=== PATIENT | female | born 1950 | race African-American/Black ===

== ENCOUNTER → 2023-09-05 | Outpatient (CLI) | payer MEDICARE | END | disposition home or self-care (01) | LOC: RAD 09:18 | PROVIDERS: ATTEND Internal Medicine Critical Care Medicine | DX: M17.0 Bilateral primary osteoarthritis of knee (principal); M25.461 Effusion, right knee; M25.462 Effusion, left knee; M25.762 Osteophyte, left knee; M25.761 Osteophyte, right knee | CPT/HCPCS: 73560 ==

== ENCOUNTER → 2023-12-26 | Outpatient (CLI) | payer MEDICARE | END | disposition home or self-care (01) | LOC: RAD 08:26 | PROVIDERS: ATTEND Internal Medicine Critical Care Medicine | DX: N60.02 Solitary cyst of left breast (principal) | CPT/HCPCS: 77062; 77065; G0279 ==

== ENCOUNTER → 2024-08-04 | Outpatient (CLI) | payer MEDICARE | END | disposition home or self-care (01) | LOC: US 08:16 | PROVIDERS: ATTEND Internal Medicine Critical Care Medicine | DX: C34.90 Malignant neoplasm of unspecified part of unspecified bronchus or lung (principal); N60.02 Solitary cyst of left breast; N60.01 Solitary cyst of right breast; N63.20 Unspecified lump in the left breast, unspecified quadrant; R92.323 Mammographic fibroglandular density, bilateral breasts | CPT/HCPCS: 71046; 76642; 77062; 77066; G0279 ==

== ENCOUNTER → 2025-02-04 | Outpatient (CLI) | payer MEDICARE | END | disposition home or self-care (01) | LOC: RAD 08:27 | PROVIDERS: ATTEND Internal Medicine Critical Care Medicine | DX: C34.90 Malignant neoplasm of unspecified part of unspecified bronchus or lung (principal); R06.02 Shortness of breath; Z09 Encounter for follow-up examination after completed treatment for conditions other than malignant neoplasm | CPT/HCPCS: 71046 ==